=== PATIENT | female | born 1995 | race Caucasian/White ===

== ENCOUNTER 2018-02-19 03:42 | Emergency (ER) | payer SELFPAY, MEDICAID ==
[2018-02-19] MEDS ORDERED: DIPHTH/TET/ACEL PERTUSS (ADULT) 0.5 ML VIAL IM* (04:00)
[2018-02-19] MEDS ORDERED: LIDOCAINE 1% (MDV) 20 ML INJ SC (04:00)
== END 2018-02-19 05:30 | disposition home or self-care (01) ==
LOC: FTE 03:42
DX: S61.215A Laceration without foreign body of left ring finger without damage to nail, initial encounter (principal); W26.0XXA Contact with knife, initial encounter; Y92.89 Other specified places as the place of occurrence of the external cause
CPT/HCPCS: 12001; 99283-25

== ENCOUNTER 2018-02-21 15:39 | Emergency (ER) | payer MEDICAID | END 2018-02-21 16:51 | disposition home or self-care (01) | LOC: E/R 15:39 | DX: Z48.01 Encounter for change or removal of surgical wound dressing (principal) | CPT/HCPCS: 99281; Z7502 ==

== ENCOUNTER 2018-04-22 23:58 | Emergency (ER) | payer SELFPAY, MEDICAID ==
[2018-04-23] MEDS: HYDROCODONE/APAP (10/325) TAB PO (01:13)
[2018-04-23] MEDS: LIDOCAINE 1% (MDV) 10 ML INJ INFIL (01:14)
[2018-04-23] MEDS: DIPHTH/TET/ACEL PERTUSS (ADULT) 0.5 ML VIAL IM* (01:14)
[2018-04-23] MEDS: BACITRACIN 0.9 GM OINT TOP (03:54)
== END 2018-04-23 04:15 | disposition home or self-care (01) ==
LOC: FTE 23:58
DX: S61.210A Laceration without foreign body of right index finger without damage to nail, initial encounter (principal); W26.0XXA Contact with knife, initial encounter; Y92.9 Unspecified place or not applicable; Z23 Encounter for immunization
CPT/HCPCS: 12002; 73130-RT; 90471; 90715; 99283-25

== ENCOUNTER 2018-04-25 10:43 | Emergency (ER) | payer SELFPAY | END 2018-04-25 12:25 | disposition home or self-care (01) | LOC: FTE 10:43 | DX: S61.210D Laceration without foreign body of right index finger without damage to nail, subsequent encounter (principal); X58.XXXD Exposure to other specified factors, subsequent encounter | CPT/HCPCS: 29130; 99282-25 ==

== ENCOUNTER 2018-05-02 15:25 | Emergency (ER) | payer SELFPAY | END 2018-05-02 17:25 | disposition home or self-care (01) | LOC: FTE 15:25 | DX: Z48.02 Encounter for removal of sutures (principal) | CPT/HCPCS: 99281 ==